=== PATIENT | female | born 1970 | race Caucasian/White ===

== ENCOUNTER 2024-06-07 09:10 | Day surgery (SDC) | payer OTHER ==
[~2024-06-07] VITALS: Ht 154.9 cm; Wt 80.7 kg
[2024-06-07] MEDS ORDERED: LIDOCAINE 2% 100 MG/5 ML UJET TP ONE (10:42)
[2024-06-07] MEDS ORDERED: fentaNYL citrate 0.05 MG/ML VIAL ONE (10:42)
[2024-06-07] MEDS: fentaNYL citrate 0.05 MG/ML VIAL IVP ONE (11:17)
== END 2024-06-07 12:25 | disposition home or self-care (01) ==
LOC: MDS 09:10 → MMU 09:10 → MDS 12:25
PROVIDERS: ATTEND Internal Medicine Gastroenterology
DX: K59.00 Constipation, unspecified (principal); K62.5 Hemorrhage of anus and rectum; K63.5 Polyp of colon; K64.4 Residual hemorrhoidal skin tags; M19.90 Unspecified osteoarthritis, unspecified site; Z98.891 History of uterine scar from previous surgery; Z90.710 Acquired absence of both cervix and uterus; Z79.899 Other long term (current) drug therapy; Z98.890 Other specified postprocedural states
CPT/HCPCS: 45385; 45398; J3010